=== PATIENT | female | born 1990 | race Caucasian/White ===

== ENCOUNTER 2016-11-16 10:05 | Emergency (ER) | payer OTHER ==
[~2016-11-16] VITALS: Ht 162.6 cm; Wt 104.5 kg
[~2016-11-16 10:05] MED LIST: AMOXICILLIN 8751 TAB PO; ATIVAN 0.50.5 MG/TAB PO; CEFTIN500 MG PO; IBU800 M1 PO; LINZESS145CAP; MACROBID 1100 MG/CAP PO; MOTRIN 600600 MG/TAB PO; NEXIUM 40MG40 MG PO; NEXPLANON68 MG ID; NO HOME MEDICATIONS; NORCO 325 MG-51 TAB PO; PEPTO BISMOL262 MG PO; PERCOCET 325 MG1 TA2 PO; PRENATAL1 TA1; TYLENOL PM EXTR1 TA1 PO; WELLBUTRIN 75MG75 MG PO; [UNRECOGNIZED DRUG - OTHER]
[2016-11-16 10:09] VITALS: TEMP 100
[2016-11-16] MEDS ORDERED: URIBEL1 CAP PO (10:12)
[2016-11-16 10:46] LABS: BASO % 0.3 % (0.0-2.0); EOS # 0.1 (0.0-0.7); EOS % 0.9 % (0-4.0); GRAN # 6.2 (1.4-6.5); GRAN % 70.8 % (42.2-75.2); HEMATOCRIT 40.5 % (37.0-47.0); HEMOGLOBIN 13.6 g/dl (12.5-16.0); LYMPH % 22.5 % (20.0-51.0); MEAN CELL VOLUME 93 fl (80.0-100.0); MEAN CORPUSCULAR HEMOGLOBIN 31 pg (27.0-31.0); MEAN CORPUSCULAR HGB CONC 34 g/dl (33.0-37.0); MEAN PLATELET VOLUME 9.1 fl (7.4-10.4); MONO # 0.5 (0.1-0.6); MONO % 5.3 % (1.7-9.3); PLATELET COUNT 298 K/mm3 (130-400); RED BLOOD COUNT 4.36 M/mm3 (4.10-5.30); REDCELL DISTRIBUTION WIDTH-CV 11.9 % (11.5-14.5); WHITE BLOOD COUNT 8.8 K/mm3 (4.8-10.8)
[2016-11-16 11:02] LABS: ADJUSTED CALCIUM 9.4 mg/dL (8.4-10.2); ALANINE AMINOTRANSFERASE 36 U/L (9-52); ALBUMIN 4.5 gm/dL (3.5-5.0); ALKALINE PHOSPHATASE 79 U/L (50-136); ANION GAP 11 mmol/L (7-16); BILIRUBIN,TOTAL 0.5 mg/dL (0.0-1.0); BLOOD UREA NITROGEN 11 mg/dL (7-17); C-REACTIVE PROTEIN 0.7 mg/dL (0.0-0.9); CALCIUM 9.8 mg/dL (8.4-10.2); CARBON DIOXIDE 25 mmol/L (22-30); CHLORIDE 103 mmol/L (98-107); CREATININE, serum 0.65 mg/dL (0.52-1.25); GLUCOSE 114 mg/dL (74-106); SODIUM 139 mmol/L (137-145); TOTAL PROTEIN 7.7 gm/dL (6.4-8.2)
[2016-11-16 11:12] LABS: TROPONIN-I < 0.012 ng/mL (0.000-0.034)
[2016-11-16] MEDS ORDERED: TOPROL XL 50MG50 MG PO (11:28)
[2016-11-16 11:31] LABS: PH 6 (5-8); URINE APPEARANCE Clear; URINE BACTERIA None Seen /hpf; URINE BILIRUBIN Negative (NEGATIVE); URINE BLOOD 1+ (NEGATIVE); URINE COLOR Yellow; URINE GLUCOSE Negative (NEGATIVE); URINE KETONE Negative (NEGATIVE); URINE RBC None Seen /hpf; URINE UROBILINOGEN Negative (NEGATIVE); URINE WBC 0-2 /hpf
[2016-11-16 11:51] VITALS: BP 139/85; PULSE 106
== END 2016-11-16 12:15 | disposition home or self-care (01) ==
LOC: COL.ER 10:05
PROVIDERS: Emergency Medicine
DX: R55 Syncope and collapse (principal); I10 Essential (primary) hypertension; R00.0 Tachycardia, unspecified
CPT/HCPCS: J7030

== ENCOUNTER 2017-08-12 08:01 | Day surgery (SDC) | payer OTHER ==
[~2017-08-12] VITALS: Ht 162.6 cm; Wt 98.5 kg
[~2017-08-12 08:01] MED LIST changes: +TOPROL XL 50MG50 MG PO; +URIBEL1 CAP PO
[2017-08-12 08:43] VITALS: BP 128/91; PULSE 115; TEMP 98.5
[2017-08-12 09:30] VITALS: BP 118/69; PULSE 97; TEMP 98.7
[2017-08-12 09:45] VITALS: BP 109/65; PULSE 97
[2017-08-12 10:00] VITALS: BP 109/65; PULSE 97
== END 2017-08-12 10:10 | disposition home or self-care (01) ==
LOC: SDCO 08:01
DX: K92.1 Melena (principal); K64.0 First degree hemorrhoids; K59.00 Constipation, unspecified; K58.9 Irritable bowel syndrome, unspecified; K21.9 Gastro-esophageal reflux disease without esophagitis; K29.70 Gastritis, unspecified, without bleeding; E66.9 Obesity, unspecified; Z87.19 Personal history of other diseases of the digestive system
CPT/HCPCS: J2250; J2405; J3010; J7030